=== PATIENT | female | born 1995 | race Caucasian/White ===

== ENCOUNTER 2017-10-20 06:53 | Emergency (ER) | payer OTHER ==
[~2017-10-20] VITALS: Ht 154.9 cm; Wt 72.1 kg
[2017-10-20] MEDS ORDERED: PRENATABS RX T1 EACH (07:06)
== END 2017-10-20 10:17 | disposition home or self-care (01) ==
LOC: ER 06:53
DX: K52.9 Noninfective gastroenteritis and colitis, unspecified (principal)

== ENCOUNTER 2017-10-28 16:48 | Outpatient (CLI) | payer OTHER ==
[~2017-10-28 16:48] MED LIST: PRENATABS RX T1 EACH
[2017-10-28] MEDS ORDERED: ZOVIRAX400 M1 PO (20:03)
== END 2017-10-29 19:27 | disposition home or self-care (01) ==
LOC: OBS/DEL 16:48
DX: O76 Abnormality in fetal heart rate and rhythm complicating labor and delivery (principal); Z34.03 Encounter for supervision of normal first pregnancy, third trimester

== ENCOUNTER 2017-11-05 08:13 | Outpatient (CLI) | payer OTHER ==
[~2017-11-05 08:13] MED LIST changes: +ZOVIRAX400 M1 PO
== END 2017-11-05 12:06 | disposition home or self-care (01) ==
LOC: NST 08:13
DX: Z34.83 Encounter for supervision of other normal pregnancy, third trimester (principal)

== ENCOUNTER 2017-11-17 05:47 | Inpatient (IN) | payer OTHER ==
[~2017-11-17] VITALS: Ht 154.9 cm; Wt 3.2 kg
== END 2017-11-20 12:31 | DRG 766 ==
LOC: OBS/DEL 05:47 → OB/GYN 07:13 → LDR 07:13 → O/R 11:17 → OB/GYN 12:58
PROVIDERS: Obstetrics & Gynecology
PROC: 4A1HXCZ Monitoring of Products of Conception, Cardiac Rate, External Approach (ICD-10-PCS; 2017-11-17)
PROC: 4A033R1 Measurement of Arterial Saturation, Peripheral, Percutaneous Approach (ICD-10-PCS; 2017-11-17)
PROC: 10D00Z1 Extraction of Products of Conception, Low, Open Approach (ICD-10-PCS; principal; 2017-11-17 09:00)
DX: O62.1 Secondary uterine inertia (principal); O48.0 Post-term pregnancy; O69.81X0 Labor and delivery complicated by cord around neck, without compression, not applicable or unspecified; Z3A.40 40 weeks gestation of pregnancy; Z37.0 Single live birth

== ENCOUNTER 2022-10-17 09:49 | Inpatient (IN) | payer OTHER ==
[~2022-10-17] VITALS: Ht 152.4 cm; Wt 3.2 kg
[2022-10-22] MEDS ORDERED: COMPLETE NATAL1 EACH PO (06:54)
== END 2022-10-25 11:14 | disposition home or self-care (01) | DRG 785 ==
LOC: O/R 10-22 06:02 → OB/GYN 10-22 06:02
PROVIDERS: ADMIT Obstetrics & Gynecology; ATTEND Obstetrics & Gynecology
PROC: 0UB70ZZ Excision of Bilateral Fallopian Tubes, Open Approach (ICD-10-PCS; 2022-10-22)
PROC: 4A1HXCZ Monitoring of Products of Conception, Cardiac Rate, External Approach (ICD-10-PCS; 2022-10-22)
PROC: 10D00Z1 Extraction of Products of Conception, Low, Open Approach (ICD-10-PCS; principal; 2022-10-22 09:30)
DX: O34.211 Maternal care for low transverse scar from previous cesarean delivery (principal); Z3A.39 39 weeks gestation of pregnancy; Z37.0 Single live birth; Z20.822 Contact with and (suspected) exposure to COVID-19; Z30.2 Encounter for sterilization